=== PATIENT | male | born 1985 | race African-American/Black ===

== ENCOUNTER 2018-01-01 14:51 | Inpatient (IN) | payer MEDICAID, OTHER ==
[~2018-01-01] VITALS: Ht 170.2 cm; Wt 86.2 kg
[2018-01-01] MEDS ORDERED: [UNRECOGNIZED DRUG - CODE] MC (15:07)
[2018-01-01] MEDS ORDERED: SODIUM CHLORIDE 0.9% 1,000 ML IV ONE (16:54)
[2018-01-01] MEDS ORDERED: MORPHINE SULFATE 4 MG/ML CPJ (NOT FOR IM USE) IV STA (16:54)
[2018-01-01] MEDS ORDERED: ONDANSETRON HCL 4MG/2ML VIAL IV STA (16:54)
[2018-01-01] MEDS ORDERED: KETOROLAC 30MG/ML VIAL IV STA (16:54)
[2018-01-01] MEDS ORDERED: LORAZEPAM 2MG/ML CPJ IV ONE ×2 (17:00→21:30)
[2018-01-01] MEDS ORDERED: DIPHENHYDRAMINE 50MG/ML VIAL IV ONE ×2 (17:00→21:30)
[2018-01-01] MEDS ORDERED: PIPERACILLIN/TAZ 3.375G PREMIX 50 ML IV ONE (17:00)
[2018-01-01] MEDS ORDERED: VANCOMYCIN 1 G PREMIX 200 ML IV ONE (17:00)
[2018-01-01 19:06] LABS: BASOPHILS % 0.5 % (0.0-2.0); CHLORIDE 105 mEq/L (98-107); EOSINOPHILS % 1.3 % (0.0-5.0); HEMOGLOBIN. 11.1 g/dL (14.0-18.0); INR 1.2; LYMPHOCYTES % 13.7 % (20.0-50.0); MEAN CORPUSCULAR HEMOGLOBIN 27.2 pg (28.0-32.0); MEAN PLATELET VOLUME 9.1 fl (7.4-10.4); MONOCYTES % 7.8 % (2.0-8.0); NEUTROPHILS % 76.7 % (40.0-76.0); PLATELET 235 x1000/uL (130-400); PROTHROMBIN TIME 12.7 sec (9.4-11.6); RED CELL DISTRIBUTION WIDTH 13.5 % (11.6-14.6)
[2018-01-01 19:39] LABS: CLARITY URINE CLEAR (CLEAR); COLOR URINE YELLOW (YELLOW); KETONES URINE NEGATIVE (NEGATIVE); LEUKOCYTE ESTERASE URINE NEGATIVE (NEGATIVE); NITRITE URINE NEGATIVE (NEGATIVE); OCCULT BLOOD URINE TRACE (NEGATIVE); PH URINE 6.5 (4.5-8.0); PROTEIN URINE NEGATIVE (NEGATIVE); SPECIFIC GRAVITY URINE 1.005 (1.005-1.030); UROBILINOGEN URINE 0.2 E.U./dL (0.2-1.0)
[2018-01-02] VITALS (7 sets, daily range): BP systolic 120–141; BP diastolic 54–78
[2018-01-02] MEDS ORDERED: DOCUSATE SODIUM 100MG CAPSULE PO PRN (00:15)
[2018-01-02] MEDS ORDERED: ONDANSETRON HCL 4MG/2ML VIAL IV PRN (00:15)
[2018-01-02] MEDS ORDERED: ACETAMINOPHEN 650MG/20.3ML UDC GT PRN (00:15)
[2018-01-02] MEDS ORDERED: ACETAMINOPHEN 325MG TABLET PO PRN (00:15)
[2018-01-02] MEDS ORDERED: DIPHENHYDRAMINE 50MG/ML VIAL IV PRN (00:15)
[2018-01-02] MEDS ORDERED: VANCOMYCIN 1 G PREMIX 200 ML IV SCH (00:15)
[2018-01-02] MEDS ORDERED: CLONIDINE 0.1MG TABLET PO PRN (00:15)
[2018-01-02] MEDS ORDERED: ACETAMINOPHEN 650MG SUPP PR PRN (00:15)
[2018-01-02] MEDS ORDERED: GUAIFENESIN 200MG/10ML SUGAR FREE UDC PO PRN (00:15)
[2018-01-02] MEDS ORDERED: MAGNESIUM/ALUMINUM HYDROXIDE/SIMETHICONE 30ML UDC PO PRN (00:15)
[2018-01-02] MEDS ORDERED: IPRATROPIUM/ALBUTEROL 0.5-3(2.5)MG/3ML NEB INH PRN (00:15)
[2018-01-02] MEDS ORDERED: NA PHOS,M-B/NA PHOS,DI-BA ENEMA 118ML PR PRN (00:15)
[2018-01-02] MEDS ORDERED: SODIUM CHLORIDE 0.45% 1,000 ML IV SCH (03:47)
[2018-01-02] MEDS: VANCOMYCIN 1250MG in DEXTROSE 5% WATER 250ML IV SCH ×2 (05:47→14:31)
[2018-01-02] MEDS: SODIUM CHLORIDE 0.9% INJ 3ML FLUSH IVF SCH ×2 (06:00→14:00)
[2018-01-02] MEDS ORDERED: CEFTRIAXONE 1 G PREMIX 50 ML IV SCH (06:00)
[2018-01-02] MEDS ORDERED: ENOXAPARIN 40MG/0.4ML SYR SUBCUT SCH (09:00)
[2018-01-02] MEDS ORDERED: PNEUMOCOCCAL 23-VAL P-SAC VAC 0.5 ML IM ONE (12:00)
[2018-01-02] MEDS ORDERED: CEFT1VIA IM (15:16)
[2018-01-02 17:19] LABS: BASOPHILS % 0.7 % (0.0-2.0); EOSINOPHILS % 3.8 % (0.0-5.0); HEMATOCRIT. 37.8 % (42.0-52.0); HEMOGLOBIN. 12.4 g/dL (14.0-18.0); MEAN CORPUSCULAR HEMOGLOBIN 27.3 pg (28.0-32.0); MEAN PLATELET VOLUME 9.3 fl (7.4-10.4); MONOCYTES % 8.3 % (2.0-8.0); NEUTROPHILS % 66.2 % (40.0-76.0); PLATELET 237 x1000/uL (130-400); RED BLOOD CELL COUNT 4.56 mill/uL (4.7-6.1)
[2018-01-02 17:41] LABS: CHLORIDE 106 mEq/L (98-107)
[2018-01-02] MEDS ORDERED: PHENYLEPHRINE/SHK LV/MO/PET,WH RECTAL OINT 30GM PR SCH (18:00)
== END 2018-01-02 22:15 | disposition short-term general hospital (02) | DRG 383 ==
LOC: ER 14:51 → EDBEDREQ 22:09 → EDBEDREQSVC 22:09 → ENRESERV 22:40 → 6EST 23:30
PROVIDERS: ADMIT Family Medicine; ATTEND Family Medicine
DX: L03.116 Cellulitis of left lower limb (principal); L89.153 Pressure ulcer of sacral region, stage 3; G10 Huntington's disease; R29.6 Repeated falls; I89.0 Lymphedema, not elsewhere classified; Z79.899 Other long term (current) drug therapy
CPT/HCPCS: 36415; 71045; 80053; 81003; 83605; 83880; 84484; 85025; 85610; 87040; 87086; 93005; 93970; 96365; 96367; 96375; 99285; C1893; J0696; J1200; J1650; J2060; J2543; J3370; J7030; J7060